=== PATIENT | female | born 1990 | race Caucasian/White ===

== ENCOUNTER 2024-03-09 10:21 | Emergency (ER) | payer OTHER, SELFPAY ==
[2024-03-09 10:32] VITALS: BP 132/93
--- NOTE | 2024-03-09 11:14 | ED.GENMED ---
History of Present Illness
General
Chief Complaint: Chest Pain
Source: patient
Exam Limitations: none
Time Seen by Provider: 03/09/24 10:53
Nursing documentation reviewed up to this point in time: agreed with
Travel History
Have you had any contact with someone who has COVID-19?: No
Do you have any symptoms of coronavirus? Fever > 100 degrees, chills, cough, shortness of breath, sore throat, loss of taste or smell, muscle aches, or headache?: No
History of Present Illness
History of Present Illness:
Patient is a 33-year-old female with history hypothyroid, PCOS presenting to the emergency department for evaluation of multiple complaints today. 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
she experienced bilateral arm/hand numbness, mild facial numbness and then felt intermittent chest pain on the left side. The symptoms were transient and did resolve after brief time. Patient states that this morning she also experienced
lightheadedness and decided to come to the emergency department for evaluation. She does also report noticing increased thirst over the past few days. At this time patient is not having any chest pain or shortness of breath.
Patient denies any associated nausea, shortness of breath, dizziness, headache during episode. She denies any abdominal pain, vomiting, urinary symptoms. Her last menstrual period was about a week ago.
Past History
Past History
ED Past Medical History: NIDDM and Hyperthyroidism
Phy Exam
Physical Exam
Physical Exam:
General: In no apparent distress, nontoxic appearing
Vitals: Vital signs stable, afebrile
HEENT: Atraumatic, normocephalic; pupils equal round and reactive to light bilaterally, extraocular muscle intact, moist mucous membranes, protecting airway, uvula midline
Neck: appears supple, trachea midline
CV: Regular rate and rhythm, heart sounds normal, no evidence of cyanosis
Resp: No evidence of respiratory distress, lungs clear bilateral
Abd: Soft, nontender in all 4 quadrants, non-distended
Extremities: No deformities, no evidence of cyanosis or edema; calves nontender with no evidence of swelling or erythema, DP pulses palpable and equal bilaterally
Neuro: alert and oriented x [address] time, speech normal, strength 5 out of 5 in upper and lower extremities, sensation fully intact
Psych: Normal affect
Skin: Intact, no rashes
Scores
Heart Score for Chest Pain Patients
STEMI patient?: No
History: Slightly or Non-Suspicious
ECG: Normal
Age: </= 45 years
Risk Factors: 1 or 2 Risk Factors
Troponin: </= Normal Limit
Heart Score for Chest Pain Patients: 1
Heart Score Risk: 2.5% MACE over next 6 weeks
PERC Rule Criteria
Age <50 years: Yes
HR <100 bpm: Yes
Room air oxygen sat >94%: Yes
History of DVT or PE: No
Recent trauma or surgery: No
Hemoptysis: No
Exogenous estrogen: No
Clinical signs suggestive of DVT: No
: No
Considered low risk for PE: Yes
PERC Score: 0
PE can be excluded by PERC: Yes
Course
Orders/Labs/Results
Orders:
Orders
03/09/24 10:32
ECG [Electrocardiogram (*1)] Urgent
Reason for Study: Chest Pain
EKG- Treatment ONCE
03/09/24 11:15
Test Result ONCE
03/09/24 12:03
Complete Blood Count/With Diff Urgent
Comprehensive Metabolic Panel Urgent
HCG, Serum Qualitative Screen Urgent
TSH Reflex To Free T4 Urgent
Troponin I Urgent
Abnormal Lab Results
03/09/24
12:03
MCH 31.2 H pg
(27.0-31.0)
Neutrophils % 34.5 L %
(42.2-75.2)
Lymphocytes % 56.1 H %
(20.5-51.1)
AST 40 H U/L
(14-36)
Total Protein 8.5 H g/dl
(6.3-8.2)
03/09/24 12:03
03/09/24 12:03
Vital Signs
Initial and Last Documented VS:
Initial Vital Signs
Temp Pulse Resp BP Pulse Ox
97.6 F 94 18 132/93 100
03/09/24 10:32 03/09/24 10:32 03/09/24 10:32 03/09/24 10:32 03/09/24 10:32
Last Documented Vital Signs
Temp Pulse Resp BP Pulse Ox
97.6 F 74 15 111/70 97
03/09/24 10:32 03/09/24 13:34 03/09/24 13:34 03/09/24 13:34 03/09/24 12:45
MDM/Problems Addressed
Differential Diagnosis Includes:
Not limited to: Hyperthyroid, anxiety, hyperventilation, cardiac arrhythmia, viral illness, electrolyte abnormality, , highly doubt CVA or PE
MDM/Problems Addressed:
Patient is a 33-year-old female presenting for evaluation of lightheadedness today following brief episode of bilateral arm numbness, face numbness, chest pain yesterday. At this time patient is mildly lightheaded but denies any chest pain or
shortness of breath. Does describe feeling as lightheaded, not dizzy. Vital signs are stable on arrival, she is afebrile. Physical exam as document above. She is well-appearing, in no apparent distress. Abdomen soft and nontender. Heart rate
regular, lungs clear bilaterally. There are no focal neurologic deficits on exam�normal [id number]. Given the history of episode�this may have been a hyperventilation episode. I do not suspect an acute cardiac or neurologic process. Patient
is not short of breath�do not suspect PE�successfully ruled out with PERC criteria, as well. Will check basic labs, troponin, EKG, . Will check thyroid level given known history of hypothyroid.
Labs noted. No clinically significant abnormalities. Troponin negative and given symptoms have been intermittent and present since yesterday this is sufficient to rule out acute VA. test is negative. TSH level is normal. EKG shows
normal sinus rhythm without any evidence of ischemia.
Workup here has been entirely negative. Patient has remained relatively asymptomatic. She does report feeling slightly better than earlier. No indication for admission at this time. Stable for discharge with close return precautions, primary
care follow-up. Did pursue PCP request to have patient contacted to establish primary care provider. Patient comfortable with plan. All questions answered.
Chronic conditions affecting care:
Shaista's thyroiditis, hypothyroid
Acute Exacerbation and/or Progression of Chronic Illness:
N/A
*Pulse Oximetry
Patient hypoxic: no
*EKG
Interpreted by ED Provider?: Yes
EKG Intrepretation Date: 03/09/24
Interpretation: normal
Comparison EKG: no comparison EKG present
Heart Rate: 87
Rate: normal
Rhythm: sinus
Ischemia: no ischemia
*Order Editor Interpretation
Rate: Order Editor- N/A
*Critical Care Note
Total Time (30-74mins, 75-104mins- exclusive of procedures): Not Applicable
ED Attending Note
-
Portions of this chart may have been created with voice recognition software.� Occasional wrong word or��sound alike� substitutions may have occurred due to the inherent limitations of voice recognition software.
Discharge Plan
Departure
Patient Disposition: Home (Routine Discharge)
Date of Disposition: 03/09/24
Time of Disposition: 13:29
Patient with high blood pressure during this ER visit?: No
Discharge Problem:
Lightheadedness, Chest discomfort
Instructions: Fatigue (DC), Chest Pain (DC)
Prescriptions:
No Action
epinephrine [EpiPen 2-Marco] 0.3 mg/0.3 mL auto-injector
0.3 mg IM Q5-15M PRN (Reason: hypersensitivity reaction) Qty: 2 0RF
prednisone 20 mg tablet
40 mg PO DAILY Qty: 6 0RF
Referrals:
NONE,* [Family Provider] -
Stand Alone Forms: Return to Work
Activity Restrictions/Additional Instructions:
- Return to the emergency department with any high fevers, severe headache, visual changes, persistent dizziness/lightheadedness, numbness/tingling, fainting, chest pain, shortness of breath, worsening current symptoms, or any other concerns
-Is important to stay well-hydrated.
-As discussed�I have reached out to us establish a primary care provider. You should receive a call within the next few days to set up an appointment. You should follow-up with a primary care provider to ensure symptoms are improving.
Interventions
Interventions:
*Risk Screen - Suicide Last Done: 03/09/24 10:54
*General Assessment Last Done: 03/09/24 11:43
*Neglect/Abuse Screening Last Done: 03/09/24 10:54
ED- Fall Risk Assessment Last Done: 03/09/24 13:39
*ED COVID-19 Vaccine History Last Done: 03/09/24 10:32
*Nursing Disposition Last Done: 03/09/24 13:39
ED- Cardiac Assessment Last Done: 03/09/24 11:43
Discharge Date and Time
Discharge Date/Time: 03/09/24 13:40
Print Language: VINCENTIAN
[2024-03-09 12:21] LABS: % Basophils 0.3 % (0-2); % Immature Granulocytes 0.2 % (0-0.5); % Lymphocytes 56.1 % (20.5-51.1); % Monocytes 6.9 % (1.7-9.3); % Neutrophils 34.5 % (42.2-75.2); Absolute Eosinophils 0.1 10^3/uL (0-0.7); Absolute Lymphocytes 3.4 10^3/uL (1.2-3.4); Absolute Monocytes 0.4 10^3/uL (0.1-0.6); Absolute Neutrophils 2.1 10^3/uL (1.4-6.5); Hematocrit 45.1 % (37.0-47.0); Hemoglobin 15.8 g/dL (12.0-16.0); Mean Corpuscular Hgb 31.2 pg (27.0-31.0); Mean Platelet Volume 10.1 fL (7.4-10.4); Nucleated Red Blood Cells % 0 %; Platelet Count 352 10^3/uL (130-400); Red Blood Cell Count 5.07 10^6/uL (4.20-5.40); Red Cell Dist. Width 12.7 % (11.5-14.5); White Blood Cell Count 6.1 10^3/uL (4.8-10.8)
[2024-03-09 12:40] LABS: HCG, Serum Qualitative Screen Negative
[2024-03-09 12:44] LABS: ALT (SGPT) 33 U/L (0-35); AST (SGOT) 40 U/L (14-36); Albumin 4.9 g/dl (3.5-5.0); Alkaline Phosphatase 62 U/L (38-126); Blood Urea Nitrogen 12 mg/dl (7-17); Calcium 9.9 mg/dl (8.4-10.2); Carbon Dioxide 28 mmol/L (22-30); Chloride 103 mmol/L (98-107); Glucose 87 mg/dl (70-99); Potassium 4.7 mmol/L (3.5-5.1); Sodium 138 mmol/L (135-145); Total Bilirubin 0.4 mg/dl (0.2-1.3); Total Protein 8.5 g/dl (6.3-8.2); eGFR > 60.00
[2024-03-09 12:51] LABS: Troponin I < 0.012 ng/ml
[2024-03-09 13:15] LABS: TSH Reflex To Free T4 1.84 uIU/ml (0.47-4.68)
[2024-03-09 13:34] VITALS: BP 111/70
== END 2024-03-09 13:40 | disposition home or self-care (01) ==
LOC: EMR 10:21
PROVIDERS: Physician Assistant; EMERGENCY PHYSICIAN Emergency Medicine
DX: R07.89 Other chest pain (principal); R42 Dizziness and giddiness; R20.0 Anesthesia of skin; E06.3 Autoimmune thyroiditis
CPT/HCPCS: 99284; 80053; 84443; 84484; 84703; 85025; 93005

== ENCOUNTER 2024-09-22 16:22 | Emergency (ER) | payer OTHER, SELFPAY ==
[2024-09-22 16:26] VITALS: BP 129/92
--- NOTE | 2024-09-22 17:04 | ED.GENMED ---
History of Present Illness
General
Chief Complaint: Swelling
Source: patient
Time Seen by Provider: 09/22/24 16:50
History of Present Illness
History of Present Illness:
34-year-old female with past medical history of hypothyroidism, insulin resistance, PCOS presenting to the emergency department for evaluation of what she describes to be upper abdominal swelling today prior to getting into the shower and then while
out doing some shopping felt a little weak. She also notes that for the last week or so she has been experiencing intermittent palpitations. Patient went home and took a CoQ 10 and electrolyte packet which she states helped her a little bit but
was still having some of the discomfort/swelling in the upper abdomen. Patient notes that about 2 weeks ago she was recently started on Ozempic and reports no complications following the first injection. Due for her third injection this coming
week. She denies any fevers, chills, rigors, nausea, vomiting, bowel changes or urinary symptoms. Social history and family history are noncontributory
Past History
Past History
ED Past Medical History: NIDDM and Hypothyroidism
ED Past Surgical History: Other
Social History
Tobacco: Non-smoker
Alcohol: None
Drug: None
Living: with family
Review of Systems
Review of Systems
All Other Systems: ROS reviewed and negative except as documented in HPI and ROS
Phy Exam
Physical Exam
Physical Exam:
GENERAL: Alert , in no apparent distress
EYE: clear conjunctiva b/l
HEAD: NCAT
ENT: o/p clr, mmm.
CARDIAC: Regular rate and rhythm .
LUNGS: Clear breath sounds bilaterally, no acute respiratory distress, no wheezes/rales/rhonchi
ABDOMEN: Soft, mild ttp to xiphoid/upper abdomen, no r/g, no cvat, no hernias appreciated
NEUROLOGICAL: Alert and oriented
SKIN: Warm and dry, skin intact.
MUSCULOSKELETAL: well perfused.
PSYCH: Normal and appropriate interaction.
Scores
Heart Failure Risk
Heart Failure Risk Score: Not Applicable
Heart Score for Chest Pain Patients
STEMI patient?: Not applicable
Withdrawal Assessment of Alcohol
Withdrawal Assessment Completed?: Not applicable
Course
Orders/Labs/Results
Orders:
Orders
09/22/24 16:22
Electrocardiogram (*1) Urgent
Reason for Study: Palpitations
09/22/24 16:23
EKG- Treatment ONCE
09/22/24 17:04
Complete Blood Count/With Diff Urgent
Comprehensive Metabolic Panel Urgent
Lipase Urgent
Troponin I Urgent
Abnormal Lab Results
09/22/24
17:04
Absolute Lymphs (auto) 4.0 H 10^3/uL
(1.2-3.4)
Glucose 105 H mg/dl
(70-99)
AST 42 H U/L
(14-36)
Total Protein 8.5 H g/dl
(6.3-8.2)
Albumin 5.1 H g/dl
(3.5-5.0)
09/22/24 17:04
09/22/24 17:04
Vital Signs
Initial and Last Documented VS:
Initial Vital Signs
Temp Pulse Resp BP Pulse Ox
98.4 F 96 19 129/92 99
09/22/24 16:26 09/22/24 16:26 09/22/24 16:26 09/22/24 16:26 09/22/24 16:26
Last Documented Vital Signs
Temp Pulse Resp BP Pulse Ox
98.4 F 94 19 120/66 98
09/22/24 16:26 09/22/24 18:15 09/22/24 16:26 09/22/24 18:15 09/22/24 18:15
MDM/Problems Addressed
Differential Diagnosis Includes:
medication side effect, pancreatitis, hernia, costochondritis, cholecystitis, GERD/Gastritis, less concern for ACS or cardiac cause
MDM/Problems Addressed:
34-year-old female presenting the emergency department for evaluation of palpitations x 1 week, today felt the upper part of her abdomen was little bit swollen and also felt slightly weak patient does have some mild epigastric tenderness but no
observable hernia or other abnormality. She is hemodynamically stable and in no acute distress. I suspect medication side effect is most likely cause given patient recently started Ozempic 1 week prior to symptoms starting. Will check labs to
screen for possible pancreatitis or other GI/bowel pathology with anticipation of patient being discharged home and outpatient follow-up as needed.
*Pulse Oximetry
Patient hypoxic: no
*EKG
Heart Rate: 95
Rate: normal
Rhythm: sinus
[place]: normal axis
Ischemia: no ischemia
*Critical Care Note
Total Time (30-74mins, 75-104mins- exclusive of procedures): Not Applicable
Patient Management
Escalation/DeEscalation of care consider admission/obs:
Patient's workup reassuring. Again I suspect side effect from new medication is most likely diagnosis. Patient stable for discharge home and outpatient follow-up with primary care provider. Aware of return to the ER.
ED Attending Note
-
Portions of this chart may have been created with voice recognition software.� Occasional wrong word or��sound alike� substitutions may have occurred due to the inherent limitations of voice recognition software.
Discharge Plan
Departure
Patient Disposition: Home (Routine Discharge)
Date of Disposition: 09/22/24
Time of Disposition: 18:10
Patient with high blood pressure during this ER visit?: No
Discharge Problem:
Abdominal pain, Palpitations
Instructions: Side effects from medicines
Prescriptions:
No Action
epinephrine [EpiPen 2-Marco] 0.3 mg/0.3 mL auto-injector
0.3 mg IM Q5-15M PRN (Reason: hypersensitivity reaction) Qty: 2 0RF
prednisone 20 mg tablet
40 mg PO DAILY Qty: 6 0RF
Referrals:
UNKNOWN - PT DOES,NOT KNOW [Family Provider] -
Interventions
Interventions:
*Risk Screen - Suicide Last Done: 09/22/24 16:26
*General Assessment Last Done: 09/22/24 16:26
*Neglect/Abuse Screening Last Done: 09/22/24 16:26
ED- Fall Risk Assessment Last Done: 09/22/24 18:15
*ED COVID-19 Vaccine History Last Done: 09/22/24 18:15
*Nursing Disposition Last Done: 09/22/24 18:15
ED- Cardiac Assessment Last Done: 09/22/24 17:11
ED- Pulmonary Assessment Last Done: 09/22/24 17:11
ED-Skin Assessment Last Done: 09/22/24 17:11
Discharge Date and Time
Discharge Date/Time: 09/22/24 18:17
Print Language: CYMRAES
[2024-09-22 17:14] LABS: % Basophils 0.2 % (0-2); % Eosinophils 1.3 % (0-6); % Immature Granulocytes 0.2 % (0-0.5); % Lymphocytes 47.5 % (20.5-51.1); % Monocytes 5.8 % (1.7-9.3); Absolute Eosinophils 0.1 10^3/uL (0-0.7); Absolute Monocytes 0.5 10^3/uL (0.1-0.6); Absolute Neutrophils 3.8 10^3/uL (1.4-6.5); Hematocrit 42.4 % (37.0-47.0); Mean Corp Hgb Conc. 35.4 g/dL (33.0-37.0); Mean Corpuscular Hgb 30.2 pg (27.0-31.0); Mean Corpuscular Volume 85.5 fL (81.0-99.0); Mean Platelet Volume 9.9 fL (7.4-10.4); Nucleated Red Blood Cells % 0 %; Platelet Count 341 10^3/uL (130-400); Red Blood Cell Count 4.96 10^6/uL (4.20-5.40); Red Cell Dist. Width 12.7 % (11.5-14.5); White Blood Cell Count 8.5 10^3/uL (4.8-10.8)
[2024-09-22 17:30] LABS: ALT (SGPT) 28 U/L (0-35); AST (SGOT) 42 U/L (14-36); Albumin 5.1 g/dl (3.5-5.0); Alkaline Phosphatase 58 U/L (38-126); Blood Urea Nitrogen 16 mg/dl (7-17); Calcium 9.9 mg/dl (8.4-10.2); Carbon Dioxide 26 mmol/L (22-30); Chloride 103 mmol/L (98-107); Glucose 105 mg/dl (70-99); Lipase 144 U/L (23-300); Potassium 4.2 mmol/L (3.5-5.1); Sodium 142 mmol/L (135-145); Total Bilirubin 0.2 mg/dl (0.2-1.3); Total Protein 8.5 g/dl (6.3-8.2); eGFR > 60.00
[2024-09-22 17:39] LABS: Troponin I < 0.012 ng/ml
[2024-09-22 18:15] VITALS: BP 120/66
== END 2024-09-22 18:17 | disposition home or self-care (01) ==
LOC: EMR 16:22
PROVIDERS: Physician Assistant Medical; EMERGENCY PHYSICIAN Emergency Medicine
DX: R10.9 Unspecified abdominal pain (principal); R00.2 Palpitations; E03.9 Hypothyroidism, unspecified; E11.9 Type 2 diabetes mellitus without complications; E28.2 Polycystic ovarian syndrome
CPT/HCPCS: 99284; 80053; 83690; 84484; 85025; 93005

== ENCOUNTER 2025-01-09 08:25 | Emergency (ER) | payer OTHER, SELFPAY ==
[2025-01-09 08:27] VITALS: BP 162/89
--- NOTE | 2025-01-09 09:12 | ED.GENMED ---
History of Present Illness
General
Chief Complaint: Problems
Source: patient
Exam Limitations: none
Time Seen by Provider: 01/09/25 09:05
History of Present Illness
History of Present Illness:
See MDM
Past History
Past History
ED Past Medical History: NIDDM and Hypothyroidism
ED Past Surgical History: Other
Social History
Tobacco: Non-smoker
Alcohol: None
Drug: None
Living: with family
Phy Exam
Physical Exam
Physical Exam:
See MDM
Course
Orders/Labs/Results
Orders:
Orders
01/09/25 09:11
US W Transvaginal Urgent
Reason For Exam: 7 wks, RLQ pain
01/09/25 09:23
Beta HCG Quantitative Urgent
Is this a screen?: No
Complete Blood Count/With Diff Urgent
Comprehensive Metabolic Panel Urgent
Urinalysis Reflex To Culture Urgent
Date Specimen was Collected: 01/09/25
Time Specimen was Collected: 09:13
Urine Microscopic Reflex Cult Urgent
Abnormal Lab Results
01/09/25
09:23
Glucose 108 H mg/dl
(70-99)
AST 111 H U/L
(14-36)
ALT 113 H U/L
(0-35)
Total Protein 8.3 H g/dl
(6.3-8.2)
Ur Occult Blood Reflex 3+ A
(Negative)
Urine Bacteria (Reflex) Few A
(Negative)
01/09/25 09:23
01/09/25 09:23
Vital Signs
Initial and Last Documented VS:
Initial Vital Signs
Temp Pulse Resp BP Pulse Ox
98.0 F 109 16 162/89 98
01/09/25 08:27 01/09/25 08:27 01/09/25 08:27 01/09/25 08:27 01/09/25 08:27
Last Documented Vital Signs
Temp Pulse Resp BP Pulse Ox
98.0 F 86 16 103/61 98
01/09/25 08:27 01/09/25 11:11 01/09/25 08:27 01/09/25 12:00 01/09/25 12:30
Information
Weeks gestation: Weeks: (6)
Location: Location: (uterus)
MDM/Problems Addressed
Differential Diagnosis Includes:
HPI and MDM Narrative:
34-year-old female presenting with right lower quadrant abdominal pain. She states it comes and goes and has been ongoing since yesterday. She is about 7 weeks . She called her [employer] and was instructed go to the hospital to rule
out ectopic
On exam, patient has no reproducible pain. I discussed with patient that I cannot fully rule out constipation or kidney stone pathology or early appendicitis. She does acknowledge this and understands return precautions. Regardless, will obtain
ultrasound to rule out ectopic
Physical exam
General: Well appearing and non-toxic
HEENT: protecting airway
Neck: appears supple
CV: No evidence of cyanosis
Resp: No accessory muscle use
Abd: Non-distended. No abdominal tenderness elicited
Extremities: No deformities
Neuro: alert
Psych: Normal affect
Skin: Intact
Problems Addressed including Acute and Chronic Conditions affecting care:
1. First trimester abdominal pain
Acuity: acute
Prognosis: stable
Details: Will obtain ultrasound rule out ectopic
Updates
Ultrasound confirms live IUP. We discussed the incidental finding of subchorionic hemorrhage and discussed follow-up. Patient feels comfortable going home
Differential Diagnosis (but not limited to): Ectopic , constipation, acute appendicitis
Testing considered: CT abdomen/pelvis but will refrain given the radiation risk to the fetus
Drug therapy (if applicable): OTC meds, please see d/c instruction regarding Rx drugs
Amount and/or Complexity of Data Reviewed
Clinical info obtained from: Patient
External data reviewed: N/A
Labs I independently reviewed (but not limited to): Beta-hCG, hematuria
Radiology: Ultrasound report reviewed
Pulse Ox: not hypoxic
EKG independently reviewed: N/A
[employer] Work[employer] Conveyor Line: N/A
Critical Care: N/A
Risk of Complication:
Social Determinants of health: Good social support
Discussed with other providers: N/A
Escalation of Care includes Admit/Obs: After being observed in the Emergency Department, pt stable for discharge.
Occasional wrong word or 'sound a like' substitutions may have occurred due to the inherent limitations of voice recognition software. Read the chart carefully and recognize, using context, where substitutions have occurred.
*Critical Care Note
Total Time (30-74mins, 75-104mins- exclusive of procedures): Not Applicable
ED Attending Note
-
Portions of this chart may have been created with voice recognition software.� Occasional wrong word or��sound alike� substitutions may have occurred due to the inherent limitations of voice recognition software.
Discharge Plan
Departure
Patient Disposition: Home (Routine Discharge)
Date of Disposition: 01/09/25
Time of Disposition: 13:01
Patient with high blood pressure during this ER visit?: No
Discharge Problem:
Abdominal pain in
Instructions: symptoms
Prescriptions:
No Action
epinephrine [EpiPen 2-Marco] 0.3 mg/0.3 mL auto-injector
0.3 mg IM Q5-15M PRN (Reason: hypersensitivity reaction) Qty: 2 0RF
prednisone 20 mg tablet
40 mg PO DAILY Qty: 6 0RF
Referrals:
NONE,* [Family Provider] -
Activity Restrictions/Additional Instructions:
Please return for any worsening symptoms.
You may return at any time if you have further concerns.
Please follow up with your OB doctor at the first available appointment.
Thank you for choosing [facility].
Interventions
Interventions:
*Risk Screen - Suicide Last Done: 01/09/25 08:27
*General Assessment Last Done: 01/09/25 09:26
*Neglect/Abuse Screening Last Done: 01/09/25 08:27
ED- Fall Risk Assessment Last Done: 01/09/25 09:27
*ED COVID-19 Vaccine History Last Done: 01/09/25 09:26
ED-Female Genitourinary Assessment Last Done: 01/09/25 09:27
Discharge Date and Time
Print Language: GEORGIAN
[2025-01-09 09:25] VITALS: BMI 40.4
[2025-01-09 09:34] LABS: % Basophils 0.4 % (0-2); % Eosinophils 0.7 % (0-6); % Immature Granulocytes 0.1 % (0-0.5); % Monocytes 4.8 % (1.7-9.3); Absolute Eosinophils 0.1 10^3/uL (0-0.7); Absolute Lymphocytes 3.4 10^3/uL (1.2-3.4); Absolute Monocytes 0.4 10^3/uL (0.1-0.6); Absolute Neutrophils 3.5 10^3/uL (1.4-6.5); Hematocrit 41.3 % (37.0-47.0); Hemoglobin 14.8 g/dL (12.0-16.0); Mean Corp Hgb Conc. 35.8 g/dL (33.0-37.0); Mean Corpuscular Hgb 30.8 pg (27.0-31.0); Mean Corpuscular Volume 85.9 fL (81.0-99.0); Mean Platelet Volume 9.9 fL (7.4-10.4); Nucleated Red Blood Cells % 0 %; Platelet Count 347 10^3/uL (130-400); Red Blood Cell Count 4.81 10^6/uL (4.20-5.40); Red Cell Dist. Width 13.2 % (11.5-14.5); White Blood Cell Count 7.3 10^3/uL (4.8-10.8)
[2025-01-09 09:41] LABS: Urine Albumin Negative (Neg - Trace); Urine Bilirubin Negative (Negative); Urine Character Slightly Cloudy (Clear); Urine Glucose Negative (Negative); Urine Ketone Negative (Negative); Urine Leukocyte Negative (Negative); Urine Nitrite Negative (Negative); Urine Occult Blood 3+ (Negative); Urine Specific Gravity 1.005 (<1.030); Urine Urobilinogen Negative (Neg - 1+)
[2025-01-09 09:47] LABS: ALT (SGPT) 113 U/L (0-35); AST (SGOT) 111 U/L (14-36); Albumin 4.5 g/dl (3.5-5.0); Alkaline Phosphatase 70 U/L (38-126); Blood Urea Nitrogen 9 mg/dl (7-17); Calcium 9.7 mg/dl (8.4-10.2); Carbon Dioxide 22 mmol/L (22-30); Chloride 104 mmol/L (98-107); Estimated Creatinine Clearance > 125 ml/min; Glucose 108 mg/dl (70-99); Potassium 3.9 mmol/L (3.5-5.1); Sodium 137 mmol/L (135-145); Total Bilirubin 0.5 mg/dl (0.2-1.3); Total Protein 8.3 g/dl (6.3-8.2); eGFR > 60.00
[2025-01-09 09:52] LABS: Urine Color Straw
[2025-01-09 09:53] LABS: Urine Bacteria Few (Negative); Urine Red Blood Cell 0-2 /HPF (0-2); Urine White Cell 0-2 /HPF (0-5)
[2025-01-09 11:02] VITALS: BP 123/54
[2025-01-09 12:00] VITALS: BP 103/61
== END 2025-01-09 13:13 | disposition home or self-care (01) ==
LOC: EMR 08:25
PROVIDERS: EMERGENCY PHYSICIAN Student in an Organized Health Care Education/Training Program
DX: O26.891 Other specified pregnancy related conditions, first trimester (principal); R10.31 Right lower quadrant pain; Z3A.01 Less than 8 weeks gestation of pregnancy
CPT/HCPCS: 99284; 76801; 76817; 80053; 81003; 81015; 84702; 85025